=== PATIENT | male | born 1990 | race Caucasian/White ===

== ENCOUNTER 2017-09-06 18:11 | Emergency (ER) | payer BC, OTHER ==
[2017-09-06] MEDS ORDERED: Diphtheria,Pertussis(Acell),Tetanus Vaccine 0.5 ML SDV IM ONE (18:37)
--- NOTE | 2017-09-06 19:34 | EDM.PDOC ---
ED HPI GENERAL MEDICAL PROBLEM - General Chief Complaint: Laceration Stated Complaint: CUT FINGER TIPS LEFT HAND Time Seen by Provider: 09/06/17 19:06 Source of Information: Reports: Patient, Family () History Limitations: Reports: No Limitations - History of Present Illness INITIAL COMMENTS - FREE TEXT/NARRATIVE: The patient states that he was working with a circular saw at home, when he accidentally lacerated the volar aspects of his left 2nd, 3rd, and 4th fingers, around 18:00 this evening. He is otherwise uninjured. The patient smells of alcohol, and acknowledges that he was drinking tonight. The patient does not recall when his last tetanus vaccination was. The patient does not have a PCP. Treatments JUICE STANDARDIZER: Reports: Other (see below) Other Treatments JUICE STANDARDIZER: pressure Left Hand Pain Score (Numeric/FACES): 5 - Related Data Allergies Allergy/AdvReac Type Severity Reaction Status Date / Time No Known Allergies Allergy Verified 09/06/17 18:29 Home Meds: Home Meds . [No Known Home Meds] 09/06/17 [History] Past Medical History - Past Surgical History HEENT Surgical History: Reports: Adenoidectomy, Oral Surgery ([place] teeth extraction) GI Surgical History: Reports: Appendectomy Social & Family History - Tobacco Use Smoking Status *Q: Current Every Day Smoker Years of Tobacco use: 13 Packs/Tins Daily: 0.7 Packs/Tins Daily Comment: Down from 1 ppd - Caffeine Use Caffeine Use: Reports: Coffee, Soda - Alcohol Use Alcohol Use History: Yes Alcohol Use Frequency: Socially - Recreational Drug Use Recreational Drug Use: No - Living Situation & Occupation Living situation: Reports: , with Spouse, with Family (3 kids) Occupation: Employed ([employer]) ED ROS GENERAL - Review of Systems Review Of Systems: ROS reveals no pertinent complaints other than HPI. ED EXAM, SKIN/RASH Exam: See Below Exam Limited By: No Limitations General Appearance: Alert, WD/WN, No Apparent Distress Extremities: Other (Numerous small lacerations to the volar aspects of the left second, third, and fourth fingers that collectively add up to (perhaps) 15 cm. Many are flap-like lacerations; 2 appear to be thin avulsion-type. Only one is bleeding, minimally. Neurovascular status of the left hand is intact.) ED SKIN PROCEDURES - Laceration/Wound Repair Left Hand Lac/Wound length In cm: 15 Appearance: Subcutaneous, Irregular, Clean Distal NVT: Neuro & Vascular Intact, No Tendon Injury Skin Prep: Saline Exploration/Debridement/Repair: Wound Explored, In a Bloodless Field, Explored to Base, No Foreign Material Found, Wound Margins Revised Closed with: Dermabond Sterile Dressing Applied: None Tetanus Status Addressed: Yes Complications: No Course - Vital Signs Last Recorded V/S: Last Vital Signs Temp 36.6 C 09/06/17 18:32 Pulse 79 09/06/17 18:32 Resp 20 09/06/17 18:32 BP 139/97 H 09/06/17 18:32 Pulse Ox 98 09/06/17 18:32 - Orders/Labs/Meds Orders: Active Orders 24 hr Category Date Time Status Vaccines to be Administered [RC] PER UNIT ROUTINE Care 09/06/17 18:37 Active Hand Comp Min 3V Rt [CR] Stat Exams 09/06/17 18:36 Taken Meds: Medications Discontinued Medications Generic Name Dose Route Start Last Admin Trade Name Freremy PRN Reason Stop Dose Admin Diphtheria/Tetanus/Acell Pertussis 0.5 ml 09/06/17 18:37 09/06/17 18:59 Adacel IM 09/06/17 18:38 0.5 ml .ONCE ONE Administration - Re-Assessments/Exams Free Text/Narrative Re-Assessment/Exam: 09/06/17 19:10 4-view radiographs of the left hand appear to be grossly normal. No bony injury or foreign bodies seen. Formal read per the Radiologist pending. 09/06/17 19:54 Dermabond was applied to nearly all of the lacerations on the patient's left second, third, and fourth fingers. 2 of the lacerations are avulsion wounds, therefore were not glued. avulsed skin was cut from this wound. I'm recommending that the patient not apply bandages until tomorrow, once the glue has dried thoroughly. I will refer him to Dr. Ambrocio as a PCP. Departure - Departure Time of Disposition: 19:55 Disposition: Home, Self-Care 01 Condition: Good Clinical Impression: Laceration of multiple sites of left hand and fingers - Discharge Information *PRESCRIPTION DRUG MONITORING PROGRAM REVIEWED*: Not Applicable *COPY OF PRESCRIPTION DRUG MONITORING REPORT IN PATIENT ROSSY: Not Applicable Instructions: Laceration Care, Adult Referrals: PCP,None [Primary Care Provider] - Samantha Ambrocio MD [Physician] - Forms: ED Department Discharge Additional Instructions: You were seen in the emergency room after your left second, third, and fourth fingers were cut with a circular saw. Workup in the ER included x-rays of your left hand, which showed no injury to any of the bones of your fingers. You received a tetanus vaccination while in the ER. Most of your lacerations were closed with Dermabond. 2 of the wounds could not, due to loss of skin. Once the glue has thoroughly dried by tomorrow morning, 09/07/2017, you may clean your hands with ordinary soap and water, then apply bandages to the wounds. Do not pick at the glue. Allow it to flake off on its own over the next several days to one week. Follow-up with Dr. Samantha Ambrocio as a primary care physician, as needed. If any other problems, please do not hesitate to return to the ER. - My Orders Last 24 Hours: My Active Orders 09/06/17 18:36 Hand Comp Min 3V Rt [CR] Stat 09/06/17 18:37 Vaccines to be Administered [RC] PER UNIT ROUTINE - Assessment/Plan Last 24 Hours: My Active Orders 09/06/17 18:36 Hand Comp Min 3V Rt [CR] Stat 09/06/17 18:37 Vaccines to be Administered [RC] PER UNIT ROUTINE
--- NOTE | 2017-09-07 10:01 | CR ---
Left hand: Four portable views marked as left hand were obtained. Comparison: No previous study. Joint spaces are preserved. No acute fracture, dislocation or other bony abnormality is seen. Impression: 1. No abnormality is identified on left hand exam. Diagnostic code #1
== END 2017-09-06 20:05 | disposition home or self-care (01) ==
LOC: JD.ED 18:11
DX: S61.213A Laceration without foreign body of left middle finger without damage to nail, initial encounter (principal); S61.215A Laceration without foreign body of left ring finger without damage to nail, initial encounter; S61.211A Laceration without foreign body of left index finger without damage to nail, initial encounter; W27.0XXA Contact with workbench tool, initial encounter; Z23 Encounter for immunization; F17.210 Nicotine dependence, cigarettes, uncomplicated
CPT/HCPCS: 12005; 73130-26-LT; 73130-LT; 73130-RT; 90471; 90715; 99283-25